=== PATIENT | female | born 1960 | race Caucasian/White ===

== ENCOUNTER → 2016-09-16 | Outpatient (CLI) | payer OTHER | END | disposition home or self-care (01) | LOC: C.PAPS 07:49 | PROVIDERS: ATTEND Obstetrics & Gynecology | DX: Z01.419 Encounter for gynecological examination (general) (routine) without abnormal findings (principal) ==

== ENCOUNTER → 2016-10-21 | Outpatient (CLI) | payer OTHER ==
--- NOTE | 2016-10-21 15:55 | MAMMOGRAPHY REPORT ---
BILATERAL DIGITAL SCREENING MAMMOGRAM TOMOSYNTHESIS WITH CAD: 10/21/2016 CLINICAL HISTORY: Routine screening. Patient has no complaints. TECHNIQUE: Breast tomosynthesis in addition to standard 2D mammography was performed. Current study was also evaluated with a Computer Aided Detection (CAD) system. COMPARISON: Comparison is made to exams dated: 09/06/2015 aspiration, 08/23/2015 ultrasound, 08/23/2015 mammogram, 09/18/2014 mammogram, 06/22/2013 mammogram, and 10/15/2010 mammogram - [facility]. BREAST COMPOSITION: The tissue of both breasts is extremely dense, which lowers the sensitivity of m ammography. FINDINGS: There are scattered bilateral benign-appearing round and punctate microcalcifications. Th ere is fluctuating nodularity in the breasts. No suspicious spiculated or irregular mass, architectu ral distortion or cluster of suspicious microcalcifications is seen. IMPRESSION: ACR BI-RADS CATEGORY 1: NEGATIVE There is no mammographic evidence of malignancy. A 1 year screening mammogram is recommended. The pa tient will receive written notification of the results. Approximately 10% of breast cancers are not detected with mammography. A negative mammographic report should not delay biopsy if a clinically suggestive mass is present. Dary Nunes M.D. ay/:10/21/2016 15:26:26 Caramel Coloring Operator: Charito GARCIA(Mei)(M), [facility] letter sent: Normal 1/2 BI-RADS Code: ACR BI-RADS Category 1: Negative
== END | disposition home or self-care (01) ==
LOC: C.MAMM 12:43
PROVIDERS: ATTEND Obstetrics & Gynecology
DX: Z12.31 Encounter for screening mammogram for malignant neoplasm of breast (principal)

== ENCOUNTER → 2017-11-19 | Outpatient (CLI) | payer OTHER | END | disposition home or self-care (01) | LOC: C.PAPS 15:42 | PROVIDERS: ATTEND Obstetrics & Gynecology | DX: Z12.4 Encounter for screening for malignant neoplasm of cervix (principal) ==

== ENCOUNTER 2017-12-12 08:25 | Emergency (ER) | payer OTHER ==
[~2017-12-12] VITALS: Ht 167.6 cm; Wt 70.4 kg
[2017-12-12 08:37] VITALS: TEMP 36.6; Ht 167.6 cm; Wt 70.4 kg
--- NOTE | 2017-12-12 09:00 | DIAGNOSTIC IMAGING REPORT ---
LEFT FOOT 3 VIEWS CLINICAL HISTORY: Left foot injury. FINDINGS: 3 views of the left foot are obtained. No prior studies are available for comparison at the time of dictation. The skeletal structures are well mineralized. There is a comminuted and minimally distracted spiral fracture through the proximal to mid shaft of the first distal phalanx. Overlying soft tissue edema is noted. There are small distracted fragments. Fracture does not extend to the first interphalangeal joint. Nondistracted fracture of the second middle phalanx is questioned. The joint spaces of the foot are well-maintained. There are dorsal and plantar calcaneal enthesophytes. IMPRESSION: 1. There is a spiral fracture through the proximal to mid shaft of the first distal phalanx as above with overlying soft tissue edema. 2. Question an additional nondistracted fracture of the second middle phalanx. Correlate for point tenderness at this site. 3. Dorsal and plantar heel spurs. Electronically signed by: Pierce Hanks M.D. 12/12/2017 8:59 AM Dictated Date/Time: 12/12/2017 8:56 AM
[2017-12-12] MEDS ORDERED: OXYC-737 PO (09:35)
[2017-12-12 09:49] VITALS: BP 154/87; PULSE 65; O2SAT 97
--- NOTE | 2017-12-13 06:58 | EMERGENCY ROOM VISIT NOTE ---
ED Visit Note First contact with patient: 08:43 Chief Complaint: Left foot pain. History of Present Illness: Ms. Dee is a 57-year-old white female who ambulates into the by a male friend complaining of left foot pain. Patient reports yesterday she was carrying a heavy box; weighing approximately 80 pounds, and dropped it on her left foot. She reports she immediately had pain on the left foot. When she awoke this morning she noticed increase in black and blue doing and swelling and had difficulty ambulating. Currently she complains of a sharp and throbbing pain in the area of the great toe, second toe and forefoot. She rates her discomfort 7/10. Her pain is nonradiating. Her pain worsens with palpation, ambulation flexion and extension of the great toe and weightbearing. She has not identified any alleviating factors related to the pain. She reports she has not taken any medications for pain prior to arrival at the hospital. She denies any associated knee pain, lower leg pain, ankle pain, foot weakness/numbness/ tingling. Additionally patient reports she developed superficial lacerations from the box and she has cleansed these wounds. Review of Systems: As noted above in history of present illness. Past Medical History: Patient denies. Current Medications: Patient denies. Allergies to Medications: Patient denies. Social History: Patient is currently employed; she lives with her and feels safe in her home environment; she denies tobacco use admits to alcohol use. Tetanus Immunization Status: Patient reports up-to-date. Physical Examination: Vital Signs: Date Time Temp Pulse Resp B/P (MAP) Pulse Ox O2 Delivery O2 Flow Rate FiO2 12/12/17 09:49 65 18 154/87 97 12/12/17 08:37 36.6 70 18 153/84 98 Room Air GENERAL: 57-year-old female in mild to moderate distress due to pain, nontoxic- appearing, afebrile and hemodynamically stable. NEUROLOGICAL: Awake, alert and oriented to person, place and time. Answering questions appropriately and following commands. Good hand eye coordination. No focal motor or sensory deficits. SKIN: Warm, dry and pink. Left Foot: Over the top of the foot patient has 2 superficial open wounds consistent with abrasion/lacerations just proximal to the toes. There is no active bleeding. LEFT LOWER EXTREMITY: No shortening or malrotation. No tenderness in the hip, lower leg, ankle. Moderate tenderness to the forefoot and great and second toes. Significant swelling and ecchymosis throughout the forefoot including the superficial soft tissue injuries as noted above. I do not appreciate any bony crepitus. She was able to plantarflex and dorsiflex the ankle. There is no ligamentous laxity at the level of the ankle. She had difficulty flexion all the toes at the MCP and PIP joints due to pain. The toes were pink and warm and capillary refill was brisk. She was able to distinguish light sensations to all dermatomes but did note the lateral aspect of the great toe was slightly numb. ED Course: Patient is assessed as noted above. Patient's medication list was reviewed. Patient was offered pain medication and refused. She was given ice for pain and swelling. Left Foot X-Rays: Were read by myself and the radiologist showing a spiral fracture through the proximal to mid shaft of the first distal phalanx of the great toe and a nondisplaced fracture of the second middle phalanx. Radiologist also notes dorsal and plantar heel spurs. Patient was placed in a postop shoe and nonweightbearing crutches. Patient was educated about today's findings and instructed on her treatment plan ; she verbalized understanding and agreement with this plan. Clinical Impression: Fractures of the right great and second toes. Disposition: Patient discharged to home in stable condition accompanied by her father; prior to departure she was reassessed and subjectively reported she was feeling the same. Plan: Comfort measures were discussed with the patient including rest, ice, splint and crutch use and she was placed on a sliding pain medication scale of ibuprofen, acetaminophen and OxyIR; her name was checked in state database and no red flags were noted and she was given appropriate narcotic precautions. Wound care and signs of infection were discussed with the patient. Patient reports she had seen Dr. Cloud, orthopedist, for previous orthopedic injuries and she was referred to his office; she was encouraged to call on Thursday morning and request follow-up care and treatment. Patient was encouraged return to the ED for worsening/uncontrolled pain, worsening/uncontrolled swelling, worsening/uncontrolled numbness/tingling, signs of infection or any new/concerning symptoms.
== END 2017-12-12 09:51 | disposition home or self-care (01) ==
LOC: C.EDB 08:27 → C.EDA 09:51
DX: S92.404A Nondisplaced unspecified fracture of right great toe, initial encounter for closed fracture (principal); S92.504A Nondisplaced unspecified fracture of right lesser toe(s), initial encounter for closed fracture; W20.8XXA Other cause of strike by thrown, projected or falling object, initial encounter

== ENCOUNTER 2019-12-05 07:16 | Observation (INO) ==
--- NOTE | 2019-11-28 09:15 | Anesthesiology Consultation ---
Date of Service November 28, 2019 Assessment & Plan (1) Encounter for pre-operative examination: Chart Review Chart Review: Acceptable Risk for Surgery (pending preop Covid testing ) and Patient NOT seen in Pre Admission Testing Per nursing assessment 11/25/2019, patient denies any recent travel. No known COVID positive contacts are covered related symptoms. Scheduled for preop COVID testing 11/30/2019. History Surgery Operation Date: 12/05/19 08:40 Proposed Procedures p Left Breast Lumpectomy with Lorena Administrative Fellow Localization and Left [place] Lymph Node Biopsy - Real Patino MD, FACS Height/Weight Height: 5 ft 6 in Weight: 67.132 kg Allergies Allergy/AdvReac Type Severity Reaction Status Date / Time No Known Allergies Allergy Verified 11/25/19 15:02 Medications Home Medications Medication Instructions Recorded Confirmed Last Taken acetaminophen [Tylenol] 325 mg PO QID PRN 11/25/19 11/25/19 Unknown Past Medical History Medical History Abnormal uterine bleeding (AUB) RESOLVING Breast lump LEFT Nausea and vomiting after administration of anesthetic agent Nontoxic multinodular goiter Past Family History Family History Grandmother Breast cancer Mother Breast cancer Father Heart disease Past Surgical History Surgical History History of bilateral tubal ligation History of colonoscopy History of tooth extraction Hx of oral surgery 1980 S/P thyroid surgery sub total thyroidectomy Social History Smoking Status: Never smoker Do You Dip or Chew Tobacco: No Hx Alcohol Use: Yes Alcohol type: beer and wine alcohol intake frequency: a few times a week Hx Substance Use: No substance use type: does not use Testing Laboratory Results Laboratory Tests 11/25/19 11/25/19 11:57 11:57 WBC 5.85 Hgb 14.1 Hct 42.0 Plt Count 222 Sodium 141 Potassium 4.3 Chloride 109 H Carbon Dioxide 27 BUN 13 Creatinine 0.85 Glucose 82 Electrocardiogram Date: 11/25/19 Findings: + NSR @ (66)
[~2019-12-05 07:16] MED LIST: CEFAZOLIN 2000MG 2,000 MG/15 ML SYR IV SCH; LR 15ML/HR IV SCH
--- NOTE | 2019-12-05 08:50 | History & Physical Bridge Note ---
Date of Service December 05, 2019 History & Physical Bridge Note I have examined the patient, reviewed the History & Physical and in the interval since the performance of the History & Physical I have noted the following changes of clinical significance: no changes noted
[2019-12-05] MEDS ORDERED: ONDANSETRON INJ 2 MG/ML 2 ML VIAL IV PRN ×2 (09:24→13:09)
[2019-12-05] MEDS ORDERED: ATROPINE SULFATE 0.1 MG/ML 10ML SYR IV PRN (09:24)
[2019-12-05] MEDS ORDERED: ePHEDrine sulfate 50 MG/ML AMP IV PRN (09:24)
[2019-12-05] MEDS ORDERED: fentaNYL citrate 100 MCG/2 ML VIAL IV PRN (09:24)
[2019-12-05] MEDS ORDERED: DEXAMETHASONE SOD INJ 4 MG/ML VIAL ONE (09:27)
[2019-12-05] MEDS ORDERED: LIDOCAINE HCL 2% 2 ML VIAL/AMP(20MG/ML) INFIL ONE (09:27)
[2019-12-05] MEDS ORDERED: ONDANSETRON INJ 2 MG/ML 2 ML VIAL ONE ×2 (09:27→11:25)
[2019-12-05] MEDS ORDERED: METHYLENE BLUE 0.5% 10 ML VIAL ONE (09:27)
[2019-12-05] MEDS ORDERED: PROPOFOL IV EMULSION 10 MG/ML 20 ML VIAL IV ONE (09:27)
[2019-12-05] MEDS ORDERED: BUPIVACAINE 0.5 % 5 MG/1 ML MPF 30ML VIAL ONE (09:27)
[2019-12-05] MEDS ORDERED: fentaNYL citrate 100 MCG/2 ML VIAL ONE ×3 (09:28→11:07)
[2019-12-05] MEDS ORDERED: MIDAZOLAM HCL 1 MG/ML 2ML VIAL ONE (09:28)
[2019-12-05] MEDS ORDERED: SCOPOLAMINE 1.5 MG TDSY TD ONE ×2 (09:33)
--- NOTE | 2019-12-05 09:33 | Nuclear Medicine Report ---
LYMPHOSCINTIGRAPHY CLINICAL HISTORY: Left breast cancer. PROCEDURE: Using standard sterile technique, 4 periareolar intradermal and one deep injection of 0.5 mCi of Lymphoseek was placed in the left breast. The patient tolerated the procedure well. There were no immediate complications. The patient was subsequently transported to the surgical suite. No imagi ng was obtained at the referring physician's request. IMPRESSION: Injection of 0.5 mCi of Lymphoseek in the left breast. ACT 112: Negative or not required by law. Electronically signed by: Pierce Hanks M.D. 12/05/2019 9:32 AM
[2019-12-05] MEDS ORDERED: ePHEDrine sulfate 50 MG/ML SYR ONE (10:49)
[2019-12-05] MEDS ORDERED: ACETAMINOPHEN 1,000 MG/100 ML VIAL IV ONE (11:28)
--- NOTE | 2019-12-05 11:28 | Post Operative Brief Note ---
PG Immediate Post Op with CF Date of Surgery December 05, 2019 Pre & Post Diagnosis Operation Date: 12/05/19 10:00 Pre-Op Diagnosis: Left Breast Cancer Post-Op Diagnosis: Left Breast Cancer I identified the patient and participated in the time-out.: Yes Procedure Operation Date: 12/05/19 10:00 Actual Procedures p Left Breast Lumpectomy with Lorena Radar Engineer Localization and Left [place] Lymph Node Biopsy(Left) - Real Patino MD, FACS Surgeon Real Patino MD, FACS Salvage Supervisor Ambika Ortiz Estimated Blood Loss 50 Findings Consistent with Post-Op Diagnosis Specimens Specimen Description: Frozen Section: 1. Left Sentinal Lymph Node- Sent to lab at 1021 Fresh: A. Left Breast Tissue, Long silk lateral, Short silk medial, methylene blue deep, plain suture anterior B. Additional Left Breast tissue superior/Medial/deep, long silk lateral, short silk medial, methylene blue new margin C. Additional Left breast tissue inferior/medial/deep , long silk=lateral, short silk = medial methylene blue =new margin sent fresh
[2019-12-05] MEDS ORDERED: ACETAMINOPHEN 325 MG TAB PO PRN (11:32)
--- NOTE | 2019-12-05 11:59 | Operative Report (OR) ---
DATE OF OPERATION: 12/05/2019 NAME OF OPERATION: Left lumpectomy with sentinel lymph node biopsy with Lorena Barrel Rifler Button. PREOPERATIVE DIAGNOSIS: Left breast cancer. POSTOPERATIVE DIAGNOSIS: Left breast cancer. STAFF SURGEON: Real Patino MD. SALES TRAINING COORDINATOR: Regi Ortiz PA-C. ANESTHESIA: General. DESCRIPTION OF PROCEDURE: The patient was brought in the Operating Room and placed on the Operating Room table in the supine position. Her left arm was extended on an arm board. A 0.5% plain Marcaine was used to anesthetize the incisions. Initially, incision was made in the axilla carrying dissection down using the Neoprobe to identify the sentinel nodes. Two nodes were identified, sent for frozen section and found to be negative. There was some hematoma in the left axilla, which was explored with vessels ligated using 2-0 chromic and plain suture. A dressing was placed into that wound and then a lumpectomy was performed making a transverse incision at the 3-4 o'clock position lateral to the areola carrying dissection down using the Lorena Barrel Rifler Button to identify the area of the marker which was very deep and central. The initial left breast tissue was marked with a long silk suture lateral, short silk suture medial, plain suture anterior and methylene blue deep. It was placed into the Faxitron and Dr. Nunes evaluated it. We felt that additional deep medial tissue would be taken. I did take additional superior medial deep tissue and additional inferior/medial/deep tissue both marked with long silk suture lateral, short silk suture medial and methylene blue new margin. Then, I placed clips at the area of the initial tumor. Deep tissue was reapproximated using 2-0 plain suture, then the skin reapproximated using subcuticular 4-0 Monocryl with Steri-Strips. The axilla was evaluated. There was no bleeding. There was some oozing from hematoma, but the tissue was closed using 2-0 plain suture, then the skin reapproximated using 4-0 nylon suture. Dressings applied and the patient transferred to Recovery Room in stable condition. My information assistant helped with prepping, draping, removal of the breast and axillary tissue and then closure of the wounds. I attest to the content of the Intraoperative Record and any orders documented therein. Any exception s are noted below.
[2019-12-05] MEDS ORDERED: PROMETHAZINE HCL 6.25 MG in SODIUM CHLORIDE 0.9% 50 ML IV PRN (12:27)
--- NOTE | 2019-12-05 12:29 | Anesthesiology Progress Note ---
Date of Service December 05, 2019 Anesthesia Post Procedure Vital Signs Vital Signs: Temp Pulse Pulse Resp BP Pulse Ox 12/05/19 12:20 75 14 136/65 97 12/05/19 12:10 70 12 146/69 H 97 12/05/19 12:00 80 20 148/70 H 100 12/05/19 11:50 87 14 142/76 H 100 12/05/19 11:42 36.2 C L 101 H 19 150/72 H 99 12/05/19 08:42 36.8 C 73 20 156/79 H 98 Pain Intensity Left Breast: Pain Intensity: 3 Transfer of Care Handoff Completed per policy Notes Mental Status: alert / awake / arousable and participated in evaluation Patient Amnestic to Procedure: Yes Nausea / Vomiting: adequately controlled Pain: adequately controlled Airway Patency, RR, SpO2: stable & adequate BP & HR: stable & adequate Hydration State: stable & adequate Anesthetic Complications: no major complications apparent and Pt Satisfied with anesthetic care
[2019-12-05] MEDS ORDERED: IBUPROFEN 600 MG TAB PO PRN (13:09)
[2019-12-05] MEDS ORDERED: MoRPHine SULFATE 4 MG/ML 1 ML CARP\\VIAL IV PRN (13:09)
[2019-12-05] MEDS ORDERED: SODIUM CHLORIDE 0.9% 1000ML 1,000 ML IV SCH (13:09)
[2019-12-05] MEDS ORDERED: MoRPHine SULFATE 2 MG/ML CARP IV PRN ×2 (13:09)
[2019-12-05] MEDS ORDERED: PROMETHAZINE HCL 25 MG in SODIUM CHLORIDE 0.9% 50 ML IV PRN (13:09)
[2019-12-05] MEDS ORDERED: PROMETHAZINE HCL 12.5 MG in SODIUM CHLORIDE 0.9% 50 ML IV PRN (13:09)
[2019-12-05] MEDS ORDERED: HYDROCODONE/ACETAMOPHEN 5/325MG TAB PO PRN (13:09)
[2019-12-05] MEDS: HYDROCODONE/ACETAMOPHEN 5/325MG TAB PO PRN ×2 (14:27→22:04)
--- NOTE | 2019-12-05 15:36 | Mammography Report ---
SPECIMEN: 12/05/2019 CLINICAL HISTORY: 59-year-old woman with recently diagnosed invasive ductal carcinoma of the left khalif tral breast. Wireless needle localization was performed with a Lorena mobility manager reflector on 12/01/2019 and today patient presents for lumpectomy including specimen radiography. COMPARISON: Comparison is made to exams dated: 11/16/2019 breast MRI, 12/01/2019 localization, 0 mammogram, 11/04/2019 stereotactic biopsy, 11/01/2019 ultrasound, and 11/01/2019 mammogram - [facility]. FINDINGS: A specimen radiograph was performed which demonstrates the hourglass shaped biopsy marker a nd savvy mobility manager reflector as well as 2 prominent calcifications within the tissue specimen. The refle ctor and biopsy marker are somewhat close to the medial and posterior edges of the tissue specimen. This was relayed to the operating surgeon who was going to obtain more medial and posterior tissue. IMPRESSION: SPECIMEN Left breast tissue specimen, as above. Dary Nunes M.D. ay/:12/05/2019 12:03:38 Civil Preparedness Officer: OR Technologist, [facility]
[2019-12-05] MEDS ORDERED: CHECK SCOPOLAMINE PATCH PLACEMENT SCH (16:00)
[2019-12-05] MEDS: CEFAZOLIN 1000MG 1,000 MG/7.5 ML SYR IV SCH (19:18)
[2019-12-06] MEDS: CEFAZOLIN 1000MG 1,000 MG/7.5 ML SYR IV SCH ×2 (02:14→09:37)
--- NOTE | 2019-12-06 11:19 | Discharge Summary (DS) ---
PRINCIPAL DIAGNOSIS: Left breast cancer. PROCEDURES: The patient underwent left lumpectomy with left sentinel lymph node biopsy. HISTORY OF PRESENT ILLNESS: The patient is a 59-year-old female with biopsy proven left breast cancer for definitive surgery. She was brought into the hospital on 12/05/2019 where she underwent left lumpectomy with sentinel lymph node biopsy. She tolerated the procedure well and has done well overnight and is felt stable for discharge home today to be followed in the surgical clinic within 1 week.
== END 2019-12-06 10:38 | disposition home or self-care (01) ==
LOC: ASU 07:16 → 3W 07:16